=== PATIENT | male | born 1995 | race Caucasian/White ===

== ENCOUNTER 2020-11-23 01:59 | Emergency (ER) | payer OTHER ==
[2020-11-23] MEDS ORDERED: LEXAPRO5 MG PO (02:10)
[2020-11-23] MEDS ORDERED: PRILOSEC OTC20 MG PO (02:10)
[2020-11-23] MEDS ORDERED: ATARAX 10MG10 MG/TAB PO (02:22)
[2020-11-23] MEDS ORDERED: BUPRENORPHINE H1 TA2 SL (02:23)
[2020-11-23 03:06] LABS: EOS # 0.17 (0.04-0.40); EOS % 1.4 % (0.0-4.0); HEMATOCRIT 45.4 % (42.0-52.0); HEMOGLOBIN 15.3 g/dL (13.5-18.0); LYMPH# 2.86 (1.50-4.00); MEAN CELL VOLUME 90 fl (78-100); MEAN CORPUSCULAR HEMOGLOBIN 30 pg (27-31); MEAN CORPUSCULAR HGB CONC 34 g/dL (33-37); MEAN PLATELET VOLUME 9.7 fl (7.4-10.4); MONO # 0.92 (0.20-0.80); NEU # 7.69 (1.40-6.50); PLATELET COUNT 497 K/mm3 (130-400); RED BLOOD COUNT 5.06 M/mm3 (4.20-5.60); RED CELL DISTRIBUTION WIDTH 13.1 % (11.5-14.5); WHITE BLOOD COUNT 11.8 K/mm3 (4.8-10.8)
[2020-11-23 03:14] LABS: POTASSIUM 3.6 mmol/L (3.5-5.1)
[2020-11-23 03:15] LABS: CALCIUM 9.4 mg/dL (8.3-10.5)
[2020-11-23 03:16] LABS: TOTAL PROTEIN 7.8 g/dL (6.4-8.3)
[2020-11-23 03:18] LABS: TOTAL BILIRUBIN 0.4 mg/dL (0.2-1.2)
[2020-11-23] MEDS ORDERED: CEPHALEXIN500 M1 PO (03:36)
[2020-11-23 04:16] VITALS: BP 106/78
== END 2020-11-23 04:16 ==
LOC: ED 01:59
PROVIDERS: Family Medicine
DX: L01.00 Impetigo, unspecified (principal); R25.2 Cramp and spasm; R55 Syncope and collapse; E86.9 Volume depletion, unspecified; F11.13 Opioid abuse with withdrawal; F17.210 Nicotine dependence, cigarettes, uncomplicated
CPT/HCPCS: J7120